=== PATIENT | male | born 1990 | race Caucasian/White ===

== ENCOUNTER 2024-08-24 11:07 | Emergency (ER) | payer MEDICAID ==
[~2024-08-24] VITALS: Ht 175.3 cm; Wt 81.0 kg
[2024-08-24 11:16] VITALS: O2SAT 100
[2024-08-24 11:20] VITALS: TEMP 36.9; O2SAT 100
[2024-08-24 12:11] LABS: CLARITY URINE CLEAR (CLEAR); COLOR URINE YELLOW (YELLOW); GLUCOSE URINE NEGATIVE (NEGATIVE); KETONES URINE NEGATIVE (NEGATIVE); LEUKOCYTE ESTERASE URINE NEGATIVE (NEGATIVE); NITRITE URINE NEGATIVE (NEGATIVE); OCCULT BLOOD URINE NEGATIVE (NEGATIVE); PH URINE 5.5 (4.5-8.0); PROTEIN URINE NEGATIVE (NEGATIVE); SPECIFIC GRAVITY URINE 1.025 (1.005-1.030); UROBILINOGEN URINE 0.2 E.U./dL (0.2-1.0)
[2024-08-24 12:45] VITALS: BP 125/70; PULSE 88; RESP 18
[2024-08-24] MEDS: MORPHINE SULFATE 4 MG/ML INJ (FOR IV/IM USE) IV ONE (12:45)
[2024-08-24 12:49] LABS: BASOPHILS % 1.1 % (0.0-2.0); HEMATOCRIT. 44.7 % (42.0-52.0); HEMOGLOBIN. 15.7 g/dL (14.0-18.0); LYMPHOCYTES % 38.8 % (20.0-50.0); MEAN CORPUSCULAR HEMOGLOBIN 31.5 pg (28.0-32.0); MEAN PLATELET VOLUME 7.5 fl (7.4-10.4); MONOCYTES % 6.7 % (2.0-8.0); NEUTROPHILS % 51.4 % (40.0-76.0); PLATELET 339 x1000/uL (130-400); RED BLOOD CELL COUNT 4.97 mill/uL (4.7-6.1); RED CELL DISTRIBUTION WIDTH 12.8 % (11.6-14.6); WHITE BLOOD COUNT 6.7 x1000/uL (4.5-11.0)
[2024-08-24 12:59] LABS: CHLORIDE 104 mEq/L (98-107); POTASSIUM 4.2 mEq/L (3.5-5.1); SODIUM 137 mEq/L (136-145)
[2024-08-24 13:00] LABS: CALCIUM 9.7 mg/dL (8.7-10.4); CARBON DIOXIDE 28 mEq/L (21-32)
[2024-08-24 13:05] LABS: CREATININE 0.8 mg/dL (0.6-1.3)
[2024-08-24 13:06] LABS: GLUCOSE 95 mg/dL (70-105); UREA NITROGEN BLOOD 15 mg/dL (9-23)
[2024-08-26] MEDS ORDERED: TRAM-534 PO (10:32)
== END 2024-08-24 14:01 | disposition home or self-care (01) ==
LOC: ER 11:07
DX: K40.90 Unilateral inguinal hernia, without obstruction or gangrene, not specified as recurrent (principal)
CPT/HCPCS: 80048; 81003; 85025; 36415; 74176; 99284; J2270; Z7610